=== PATIENT | male | born 1990 | race Caucasian/White ===

== ENCOUNTER 2016-04-13 16:50 | Emergency (ER) | payer BC ==
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
[2016-04-13 18:48] VITALS: BP 135/70
== END 2016-04-13 18:48 | disposition home or self-care (01) ==
LOC: JD.ED 16:50
DX: T40.1X1A Poisoning by heroin, accidental (unintentional), initial encounter (principal); F17.210 Nicotine dependence, cigarettes, uncomplicated; Z98.890 Other specified postprocedural states
CPT/HCPCS: 36415; 80053; 85025; 99283; 99285

== ENCOUNTER 2017-03-23 17:05 | Emergency (ER) | payer BC ==
[2017-03-23 17:26] VITALS: BP 110/71
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
[2017-03-23] MEDS ORDERED: Ondansetron 4 MG/2 ML SDV IVPUSH ONE (21:06)
[2017-03-23] MEDS ORDERED: Sodium Chloride 0.9% 500 ML IV ONE (21:06)
[2017-03-23] MEDS ORDERED: Sodium Chloride 0.9% 10 ML Syringe FLUSH PRN (22:13)
[2017-03-23] MEDS ORDERED: Diatrizoate Meglumine/Diatrizoate Sodium 37% 120 ML Bottle PO ONE (22:13)
[2017-03-23] MEDS ORDERED: Iopamidol 612 MG/ML 150 ML Bottle IVPUSH ONE (22:13)
[2017-03-23] MEDS ORDERED: Levofloxacin 250 MG Tab PO ONE (23:55)
[2017-03-23] MEDS ORDERED: metroNIDAZOLE 500 MG Tab PO ONE (23:56)
--- NOTE | 2017-03-24 07:43 | CT ---
CT abdomen and pelvis Technique: Multiple axial sections were obtained from above the dome of the diaphragm inferiorly through the pubic symphysis. Intravenous and oral contrast was utilized. Delayed images were obtained through the bladder. Comparison: No prior CT exam. Findings: Mildly prominent lymph nodes are seen within the right lower abdomen. Appendix is seen and appears normal. Mild wall thickening seen within the cecum with differential being lack of distention versus mild colitis. Other portions of the colon show normal wall thickness. Visualized lung bases are clear. Liver shows no focal abnormality. Spleen appears within normal limits. Pancreas appears normal. Adrenal glands show no nodule. Kidneys show symmetric contrast enhancement without hydronephrosis or mass. Aorta shows no aneurysmal dilatation. No retroperitoneal adenopathy or mesenteric abnormalities are seen. No pelvic mass or adenopathy is seen. No free fluid or inflammatory change is seen within the abdomen or pelvis. Delayed images show contrast within the distal ureters and within the bladder. Bone window settings appear within normal limits for the patient's age. Impression: 1. Slightly prominent lymph nodes within the right lower abdomen. Difficult to exclude so-called mesenteric adenitis. 2. Appendix is normal in size. 3. Equivocal wall thickening within the cecum which may represent mild colitis versus nondistention. 4. No additional abnormality seen on CT study of the abdomen and pelvis. Diagnostic code #3 Agree with preliminary report issued by [facility] ([facility] preliminary report dictated on 03/23/17, 11:57 PM Central Time)
== END 2017-03-24 00:23 | disposition home or self-care (01) ==
LOC: JD.ED 17:05
DX: R10.31 Right lower quadrant pain (principal); F17.210 Nicotine dependence, cigarettes, uncomplicated
CPT/HCPCS: 36415; 74177; 74177-26; 80053; 81001; 85025; 96361; 96374; 99284; 99284-25; A9270-GY; J2405; J7040; J7050; Q9963; Q9967

== ENCOUNTER 2017-05-31 16:36 | Emergency (ER) | payer BC ==
[2017-05-31] MEDS ORDERED: Sodium Chloride 0.9% 10 ML Syringe FLUSH PRN (16:57)
[2017-05-31] MEDS ORDERED: Aspirin 81 MG Tab.Chew PO ONE (16:57)
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
[2017-05-31 18:14] VITALS: BP 123/67
--- NOTE | 2017-05-31 18:52 | CR ---
Chest: Portable view of the chest was obtained. Comparison: Prior chest x-ray of 09/07/15. Heart size and mediastinum are normal. Lungs are clear. Bony structures are grossly intact. Impression: 1. Nothing acute is seen on portable chest x-ray. Diagnostic code #1
== END 2017-05-31 18:03 | disposition home or self-care (01) ==
LOC: JD.ED 16:36
DX: R09.1 Pleurisy (principal); Z87.891 Personal history of nicotine dependence
CPT/HCPCS: 36415; 71045; 80053; 84484; 85025; 85379; 93005; 99285; A9270; J7050; 99283

== ENCOUNTER 2018-06-18 14:46 | Emergency (ER) | payer BC, MEDICAID ==
[2018-06-18 14:52] VITALS: BP 122/76
[2018-06-18 15:57] LABS: ACETAMINOPHEN 0 ug/mL (10-30)
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
== END 2018-06-18 20:03 | disposition home or self-care (01) ==
LOC: JD.ED 14:46
DX: F11.20 Opioid dependence, uncomplicated (principal); F17.210 Nicotine dependence, cigarettes, uncomplicated; Z79.899 Other long term (current) drug therapy
CPT/HCPCS: 36415; 80053; 84443; 85025; 99285; G0480; 99283

== ENCOUNTER 2019-02-09 22:59 | Emergency (ER) | payer MEDICAID, OTHER ==
[2019-02-09 23:04] VITALS: BP 145/88; PULSE 106
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
== END 2019-02-10 00:57 | disposition home or self-care (01) ==
LOC: JD.ED 22:59
DX: T40.1X1A Poisoning by heroin, accidental (unintentional), initial encounter (principal); F17.200 Nicotine dependence, unspecified, uncomplicated; Z79.899 Other long term (current) drug therapy
CPT/HCPCS: 99283; 99284

== ENCOUNTER 2020-01-22 16:21 | Emergency (ER) | payer MEDICAID ==
[2020-01-22 16:34] VITALS: BP 121/82; PULSE 95
[2020-01-22] MEDS ORDERED: Sodium Chloride 0.9% 10 ML Syringe FLUSH PRN (16:48)
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
== END 2020-01-22 18:15 | disposition home or self-care (01) ==
LOC: JD.ED 16:21
DX: T40.2X1A Poisoning by other opioids, accidental (unintentional), initial encounter (principal); Z87.891 Personal history of nicotine dependence; R09.2 Respiratory arrest
CPT/HCPCS: 36415; 80053; 80307; 85025; 99284